=== PATIENT | female | born 1995 | race American Indian/Alaskan Native ===

== ENCOUNTER 2021-02-04 21:17 | Emergency (ER) | payer OTHER ==
[2021-02-04] MEDS ORDERED: ACETAMINOPHEN 500 MG TAB PO ONE (22:13)
[2021-02-04] MEDS ORDERED: IBUPROFEN 600 MG TAB PO ONE (22:13)
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
[2021-02-05 01:10] VITALS: BP 118/62
== END 2021-02-05 01:10 | disposition home or self-care (01) ==
LOC: ED 21:17
DX: S83.8X2A Sprain of other specified parts of left knee, initial encounter (principal); S86.912A Strain of unspecified muscle(s) and tendon(s) at lower leg level, left leg, initial encounter; M54.5 Low back pain; Z79.899 Other long term (current) drug therapy; V89.2XXA Person injured in unspecified motor-vehicle accident, traffic, initial encounter; Y93.89 Activity, other specified; Y92.488 Other paved roadways as the place of occurrence of the external cause; Y99.8 Other external cause status
CPT/HCPCS: 72040; 72100; 99283